=== PATIENT | female | born 1945 | race Caucasian/White ===

== ENCOUNTER 2018-03-19 12:20 | Emergency (ER) | payer OTHER ==
--- NOTE | 2018-03-19 13:20 | RAD REPORT ---
EXAM DESCRIPTION: RAD - Foot Right 3 View - 03/19/2018 1:12 pm CLINICAL HISTORY: Lateral foot pain COMPARISON: None. FINDINGS: Moderate metatarsus primus adductus with hallux valgus noted. Small calcaneal spurs are se en. No acute fracture or subluxation identified.
--- NOTE | 2018-03-19 13:40 | ER ---
Nurse's Notes [facility] Name: Yara Cartagena Age: 72 yrs Sex: Female : 1945 Arrival Date: 03/19/2018 Time: 12:24 Bed 20 Private MD: Diagnosis: Unspecified sprain of right foot Presentation: 03/19 12:42 Presenting complaint: Patient states: c/o right foot pain after hearing a "pop," denies em trauma or falling, painful when taking a step. Transition of care: patient was not received from another setting of care. Onset of symptoms was March 19, 2018. Risk Assessment: Do you want to hurt yourself or someone else? Patient reports no desire to harm self or others. Initial Sepsis Screen: Does the patient meet any 2 criteria? No. Patient's initial sepsis screen is negative. Does the patient have a suspected source of infection? No. Patient's initial sepsis screen is negative. Care prior to arrival: None. 12:42 Method Of Arrival: Wheelchair em 12:45 Acuity: BETH 4 iw Triage Assessment: 12:43 General: Appears in no apparent distress. comfortable, Behavior is calm, cooperative. em Pain: Complains of pain in right foot Pain currently is 0 out of 10 on a pain scale. at worst was 8 out of 10 on a pain scale. Musculoskeletal: Range of motion: intact in all extremities, Swelling absent. Injury Description: no injury. Historical: - Allergies: 12:46 Cipro; em - PMHx: 12:46 Pacemaker; Kidney stones; em - PSHx: 12:46 Hysterectomy; back surgery; em - Immunization history:: Adult Immunizations up to date. - Social history:: Smoking status: Patient/guardian denies using tobacco. Screenin:45 Abuse screen: Denies threats or abuse. Nutritional screening: No deficits noted. em Tuberculosis screening: No symptoms or risk factors identified. Fall Risk None identified. Assessment: 12:45 General: Appears in no apparent distress. comfortable, Behavior is calm, cooperative. em Pain: Complains of pain in right foot. Neuro: Level of Consciousness is awake, alert, obeys commands, Oriented to person, place, time, situation. Cardiovascular: Capillary refill Patient's skin is warm and dry. Cardiovascular: Denies chest pain. Respiratory: Airway is patent Respiratory effort is even, unlabored, Respiratory pattern is regular, symmetrical, Denies shortness of breath. GI: Abdomen is round non-distended. : No signs and/or symptoms were reported regarding the genitourinary system. EENT: No signs and/or symptoms were reported regarding the EENT system. Derm: Skin is intact, Skin is pink, warm \\T\\ dry. Musculoskeletal: Range of motion: intact in all extremities. 13:00 Reassessment: Patient appears in no apparent distress at this time. I agree with above iw assessment by Jann Gold LVN. 13:30 Reassessment: Patient appears in no apparent distress at this time. Patient and/or em family updated on plan of care and expected duration. Pain level reassessed. Patient is alert, oriented x 3, equal unlabored respirations, skin warm/dry/pink. Vital Signs: 12:44 BP 157 / 83; Pulse 61; Resp 18; Temp 98.6(O); Pulse Ox 97% on R/A; Weight 106.59 kg; em Height 5 ft. 6 in. (167.64 cm); Pain 0/10; 13:30 BP 111 / 60; Pulse 67; Resp 18; Pulse Ox 99% on R/A; em 12:44 Body Mass Index 37.93 (106.59 kg, 167.64 cm) em ED Course: 12:24 Patient arrived in ED. mr 12:34 Wojciech LeighNALDO [facility] kb 12:34 Tyler Schultz MD is Attending Physician. kb 12:41 Jann Gold LVN is Primary Nurse. em 12:45 Arm band placed on. em 12:45 No provider procedures requiring assistance completed. Patient did not have IV access em during this emergency room visit. 12:46 Patient has correct armband on for positive identification. Bed in low position. Call em light in reach. Adult w/ patient. 13:11 X-ray completed. Portable x-ray completed in exam room. Patient tolerated procedure ml well. 13:13 Foot Right 3 View XRAY In Process Unspecified. EDMS 13:17 Triage completed. iw Administered Medications: No medications were administered Outcome: 13:39 Discharge ordered by . kb 13:47 Discharged to home via wheelchair. em 13:47 Condition: good 13:47 Discharge instructions given to patient, family, Instructed on discharge instructions, follow up and referral plans. medication usage, Demonstrated understanding of instructions, follow-up care, medications, Prescriptions given X 1. 13:51 Patient left the ED. em Signatures: Dispatcher [employer] EDMS Leigh Jeffrey, BRAIN WAVE TECHNICIAN-C BRAIN WAVE TECHNICIAN-Ckb Haskins Tena Gold, Jann, TRAIN CONTROLLER TRAIN CONTROLLER em Tiffanie Lam, RADHA Flower, Yadira ml Corrections: (The following items were deleted from the chart) 12: General: Appears in no apparent distress. comfortable, Behavior is calm, em cooperative, em 12:25 Pain: Complains of pain in right foot em em 12:25 Neuro: Level of Consciousness is awake, alert, obeys commands, Oriented to em person, place, time, situation, em 12:25 Cardiovascular: Capillary refill Patient's skin is warm and dry. em em : 12:25 Respiratory: Airway is patent Respiratory effort is even, unlabored, Respiratory em pattern is regular, symmetrical, Denies shortness of breath em 12:25 Cardiovascular: Denies chest pain, em em 12:25 GI: Abdomen is round non-distended, em em 12:25 : No signs and/or symptoms were reported regarding the genitourinary system. em em 12:25 EENT: No signs and/or symptoms were reported regarding the EENT system. em em 12:25 Derm: Skin is intact, Skin is pink, warm \\T\\ dry. em em 12:25 Musculoskeletal: Range of motion: intact in all extremities, em em
--- NOTE | 2018-03-19 13:40 | EDPHYS ---
Physician Documentation [facility] Name: Yara Cartagena Age: 72 yrs Sex: Female : 1945 Arrival Date: 03/19/2018 Time: 12:24 Bed 20 Private MD: ED Physician Tyler Schultz HPI: 03/19 13:35 This 72 yrs old Female presents to ER via Wheelchair with complaints of Foot kb Injury. 13:35 The patient presents with pain, that is acute. The complaints affect the right foot. kb Context: The problem was sustained outdoors, resulted from an unknown cause, the patient can partially bear weight, must have assistance. Onset: The symptoms/episode began/occurred at 09:00. Modifying factors: The symptoms are alleviated by nothing, the symptoms are aggravated by weight bearing. Associated signs and symptoms: The patient has no apparent associated signs or symptoms. Severity of symptoms: At their worst the symptoms were mild, moderate, in the emergency department the symptoms are unchanged. The patient has not experienced similar symptoms in the past. The patient has not recently seen a physician. Pt states she was walking up a ramp and when she got to level ground at the top she felt a pop in the bottom of her right foot. States she was able to walk with assist since then. Historical: - Allergies: 12:46 Cipro; em - PMHx: 12:46 Pacemaker; Kidney stones; em - PSHx: 12:46 Hysterectomy; back surgery; em - Immunization history:: Adult Immunizations up to date. - Social history:: Smoking status: Patient/guardian denies using tobacco. ROS: 13:34 Constitutional: Negative for fever, chills, and weight loss, Cardiovascular: Negative kb for chest pain, palpitations, and edema, Respiratory: Negative for shortness of breath, cough, wheezing, and pleuritic chest pain, Abdomen/GI: Negative for abdominal pain, nausea, vomiting, diarrhea, and constipation, Skin: Negative for injury, rash, and discoloration, Neuro: Negative for headache, weakness, numbness, tingling, and seizure. 13:34 MS/extremity: Positive for pain, tenderness, of the right foot. Exam: 13:34 Constitutional: This is a well developed, well nourished patient who is awake, alert, kb and in no acute distress. Head/Face: Normocephalic, atraumatic. Chest/axilla: Normal chest wall appearance and motion. Nontender with no deformity. No lesions are appreciated. Cardiovascular: Regular rate and rhythm with a normal S1 and S2. No gallops, murmurs, or rubs. Normal PMI, no JVD. No pulse deficits. Respiratory: Lungs have equal breath sounds bilaterally, clear to auscultation and percussion. No rales, rhonchi or wheezes noted. No increased work of breathing, no retractions or nasal flaring. Abdomen/GI: Soft, non-tender, with normal bowel sounds. No distension or tympany. No guarding or rebound. No evidence of tenderness throughout. Skin: Warm, dry with normal turgor. Normal color with no rashes, no lesions, and no evidence of cellulitis. MS/ Extremity: Pulses equal, no cyanosis. Neurovascular intact. Full, normal range of motion. Neuro: Awake and alert, GCS 15, oriented to person, place, time, and situation. Cranial nerves II-XII grossly intact. Motor strength 5/5 in all extremities. Sensory grossly intact. Cerebellar exam normal. Normal gait. Vital Signs: 12:44 BP 157 / 83; Pulse 61; Resp 18; Temp 98.6(O); Pulse Ox 97% on R/A; Weight 106.59 kg; em Height 5 ft. 6 in. (167.64 cm); Pain 0/10; 13:30 BP 111 / 60; Pulse 67; Resp 18; Pulse Ox 99% on R/A; em 12:44 Body Mass Index 37.93 (106.59 kg, 167.64 cm) em MDM: 12:34 Patient medically screened. kb 13:34 Data reviewed: vital signs, nurses notes. Data interpreted: Pulse oximetry: on room air kb is 97 %. Interpretation: normal. Counseling: I had a detailed discussion with the patient and/or guardian regarding: the historical points, exam findings, and any diagnostic results supporting the discharge/admit diagnosis, radiology results, the need for outpatient follow up, a orthopedic surgeon, to return to the emergency department if symptoms worsen or persist or if there are any questions or concerns that arise at home. 13:38 ED course: Pt has walker to use at home. . kb 03/19 12:39 Order name: Foot Right 3 View XRAY; Complete Time: 13:23 kb Administered Medications: No medications were administered Disposition: 14:34 Co-signature as Attending Physician, Tyler Schultz MD. rn Disposition: 03/19/18 13:39 Discharged to Home. Impression: Unspecified sprain of right foot. - Condition is Stable. - Discharge Instructions: Foot Sprain. - Prescriptions for Tramadol 50 mg Oral Tablet - take 1 tablet by ORAL route every 8 hours as needed; 12 tablet. - Medication Reconciliation Form, Thank You Letter, Antibiotic Education, Prescription Opioid Use form. - Follow up: Emergency Department; When: As needed; Reason: Worsening of condition. Follow up: Private Physician; When: 2 - 3 days; Reason: Recheck today's complaints, Continuance of care, Re-evaluation by your physician. Signatures: Dispatcher [employer] EDLeigh Smith, MAXINE-C NETWORK ANALYST-Jann Burns, HOUSECLEANER FLOOR HOUSECLEANER FLOOR Tyler Verma MD MD die turner: (The following items were deleted from the chart) 13:51 13:39 03/19/2018 13:39 Discharged to Home. Impression: Unspecified sprain of right em foot. Condition is Stable. Forms are Medication Reconciliation Form, Thank You Letter, Antibiotic Education, Prescription Opioid Use. Follow up: Emergency Department; When: As needed; Reason: Worsening of condition. Follow up: Private Physician; When: 2 - 3 days; Reason: Recheck today's complaints, Continuance of care, Re-evaluation by your physician. kb
== END 2018-03-19 13:51 | disposition home or self-care (01) ==
LOC: ER 12:20
DX: S93.601A Unspecified sprain of right foot, initial encounter (principal); Y93.01 Activity, walking, marching and hiking; Y92.89 Other specified places as the place of occurrence of the external cause; Z88.1 Allergy status to other antibiotic agents; Z95.0 Presence of cardiac pacemaker
CPT/HCPCS: 99283

== ENCOUNTER 2021-07-07 08:58 | Emergency (ER) | payer OTHER ==
--- NOTE | 2021-07-07 10:39 | EDPHYS ---
Physician Documentation [facility] Name: Yara Cartagena Age: 75 yrs Sex: Female : 1945 Arrival Date: 07/07/2021 Time: 09:03 Bed 2 Private MD: ED Physician Alesia Murrell HPI: 07/07 09:12 This 75 yrs old Female presents to ER via EMS with complaints of Right sp3 shoulder pain. 09:12 75-year-old female with history of hypertension, pacemaker on Eliquis, and back surgery sp3 presents with a ground-level mechanical fall on outstretched hand with pain predominantly in the right shoulder and also in the right hand. Patient was brought in by EMS who stated that she had a limited range of motion on the right side along with anterior fullness. No other injuries including head, neck, back, chest, abdomen. Patient denies loss of consciousness, headache, neck pain, chest pain, syncope, back pain, nausea, vomiting, diarrhea, slurred speech, memory loss, motor weakness, sensory loss, any other ROS at this time. Patient states that she can move her hand and fingers but hurts on movement of her shoulder. Patient has had general anesthesia in the past without any complications.. Historical: - Allergies: 09:10 Cipro; ap3 - Home Meds: 09:10 Eliquis oral [Active]; amlodipine oral [Active]; levothyroxine oral [Active]; ap3 - PMHx: 09:10 Kidney stones; Pacemaker; ap3 - Immunization history:: Adult Immunizations up to date, Client reports receiving the 2nd dose of the Covid vaccine, Date received: January 26, 2021. - Social history:: Smoking status: Patient denies any tobacco usage or history of. ROS: 09:14 Constitutional: Negative for fever, chills, and weight loss, Eyes: Negative for injury, sp3 pain, redness, and discharge, ENT: Negative for injury, pain, and discharge, Neck: Negative for injury, pain, and swelling, Cardiovascular: Negative for chest pain, palpitations, and edema, Respiratory: Negative for shortness of breath, cough, wheezing, and pleuritic chest pain, Abdomen/GI: Negative for abdominal pain, nausea, vomiting, diarrhea, and constipation, Skin: Negative for injury, rash, and discoloration, Neuro: Negative for headache, weakness, numbness, tingling, and seizure. 09:14 All other systems are negative. Exam: 09:14 Constitutional: This is a well developed, well nourished patient who is awake, alert, sp3 and in no acute distress. Head/Face: Normocephalic, atraumatic. Eyes: Pupils equal round and reactive to light, extra-ocular motions intact. Lids and lashes normal. Conjunctiva and sclera are non-icteric and not injected. Cornea within normal limits. Periorbital areas with no swelling, redness, or edema. ENT: Nares patent. No nasal discharge, no septal abnormalities noted. External auditory canals are clear. Oropharynx with no redness, swelling, or masses, exudates, or evidence of obstruction, uvula midline. Mucous membranes moist. Neck: Trachea midline, no thyromegaly or masses palpated, and no cervical lymphadenopathy. Supple, full range of motion without nuchal rigidity, or vertebral point tenderness. No Meningismus. Chest/axilla: Normal chest wall appearance and motion. Nontender with no deformity. No lesions are appreciated. Cardiovascular: Regular rate and rhythm with a normal S1 and S2. No gallops, murmurs, or rubs. Normal PMI, no JVD. No pulse deficits. Respiratory: Lungs have equal breath sounds bilaterally, clear to auscultation and percussion. No rales, rhonchi or wheezes noted. No increased work of breathing, no retractions or nasal flaring. Skin: Warm, dry with normal turgor. Normal color with no rashes, no lesions, and no evidence of cellulitis. Neuro: Awake and alert, GCS 15, oriented to person, place, time, and situation. Cranial nerves II-XII grossly intact. Motor strength 5/5 in all extremities. Sensory grossly intact. Cerebellar exam normal. Normal gait. Psych: Awake, alert, with orientation to person, place and time. Behavior, mood, and affect are within normal limits. 09:14 Musculoskeletal/extremity: Exam is negative for abrasion, edema, erythema, laceration, Patient has anterior fullness and limited abduction on the right side. No lateral step-off is noted. Distal neuro exam, capillary refill and vascular exam are normal.. Vital Signs: 09:08 Pulse 59; Resp 18; Temp 97.7(O); Pulse Ox 100% ; Weight 88.9 kg; Height 5 ft. 6 in. ap3 (167.64 cm); Pain 9; 09:08 Body Mass Index 31.63 (88.90 kg, 167.64 cm) ap3 MDM: 09:04 Patient medically screened. sp3 09:15 Data reviewed: vital signs, nurses notes, EMS record. ED course: 75-year-old female sp3 with likely right shoulder subluxation or dislocation. There is anterior fullness and limited abduction and range of motion. No lateral step-off is noted therefore I will obtain x-rays first of the right shoulder, right hand, and chest. CT scan of the head and neck is not indicated as there is no loss of consciousness, no midline tenderness of the neck, and full range of motion without difficulty. Will obtain further laboratory values and EKG if sedation is necessary.. 10:37 ED course: Proximal humeral neck fracture noted with anterior dislocation. Shoulder sp3 surface not dislocated. Chest x-ray and hand x-ray demonstrate no fracture, pneumothorax, or other significant abnormality. Will put patient in a sling and have her follow-up with orthopedics. No other intervention is indicated at this time.. 07/07 09:10 Order name: XRAY Shoulder RIGHT 2 view sp3 07/07 09:10 Order name: XRAY Hand RIGHT 3 View sp3 07/07 09:10 Order name: XRAY Chest (1 view) sp3 07/07 09:10 Order name: NPO; Complete Time: 09:15 sp3 Administered Medications: No medications were administered Disposition Summary: 07/07/21 10:39 Discharge Ordered Location: Home sp3 Condition: Stable sp3 Diagnosis - 2-part displaced fracture of surgical neck of right humerus, initial encounter for sp3 closed fracture Followup: sp3 - With: Chico Smith MD - When: Upon discharge from the Emergency Department - Reason: Followup: sp3 - With: Dre Carpenter MD - When: Upon discharge from the Emergency Department - Reason: Discharge Instructions: - Discharge Summary Sheet sp3 - Humerus Fracture Treated With Immobilization sp3 - How to Use a Sling sp3 Forms: - Medication Reconciliation Form sp3 - Thank You Letter sp3 - Antibiotic Education sp3 - Prescription Opioid Use sp3 Signatures: Dispatcher [employer] Kenya Inman, RADHA RN ap3 Alesia Murrell MD MD sp3
--- NOTE | 2021-07-07 10:39 | ER ---
Nurse's Notes [facility] Name: Yara Cartagena Age: 75 yrs Sex: Female : 1945 Arrival Date: 07/07/2021 Time: 09:03 Bed 2 Private MD: Diagnosis: 2-part displaced fracture of surgical neck of right humerus, initial encounter for closed fracture Presentation: 07/07 09:08 Chief complaint: Patient states: she fell and hurt her right shoulder and left ankle. ap3 Coronavirus screen: At this time, the client does not indicate any symptoms associated with coronavirus-19. Ebola Screen: No symptoms or risks identified at this time. Initial Sepsis Screen: Does the patient meet any 2 criteria? No. Patient's initial sepsis screen is negative. Does the patient have a suspected source of infection? No. Patient's initial sepsis screen is negative. Risk Assessment: Do you want to hurt yourself or someone else? Patient reports no desire to harm self or others. Onset of symptoms was July 07, 2021. Care prior to arrival: Medication(s) given: Tylenol, IV Tylenol IV initiated. 20 GA, in the left antecubital area. 09:08 Method Of Arrival: EMS: [facility] ap3 09:08 Acuity: BETH 3 ap3 Triage Assessment: 09:13 General: Appears in no apparent distress. uncomfortable, Behavior is calm, cooperative, ap3 appropriate for age. Pain: Complains of pain in right shoulder, right wrist, left ankle Pain currently is 9 out of 10 on a pain scale. EENT: No signs and/or symptoms were reported regarding the EENT system. Neuro: Level of Consciousness is awake, alert, obeys commands, Oriented to person, place, time, situation, Appropriate for age Moves all extremities. Gait is unsteady, Speech is normal. Cardiovascular: Denies chest pain, shortness of breath. Respiratory: Airway is patent Respiratory effort is even, unlabored, Respiratory pattern is regular, symmetrical. GI: No signs and/or symptoms were reported involving the gastrointestinal system. : No signs and/or symptoms were reported regarding the genitourinary system. Derm: No signs and/or symptoms reported regarding the dermatologic system. Musculoskeletal: Reports pain in right shoulder, right wrist, left ankle since this mornings fall. Historical: - Allergies: 09:10 Cipro; ap3 - Home Meds: 09:10 Eliquis oral [Active]; amlodipine oral [Active]; levothyroxine oral [Active]; ap3 - PMHx: 09:10 Kidney stones; Pacemaker; ap3 - Immunization history:: Adult Immunizations up to date, Client reports receiving the 2nd dose of the Covid vaccine, Date received: January 26, 2021. - Social history:: Smoking status: Patient denies any tobacco usage or history of. Screenin:12 Abuse screen: Denies threats or abuse. Nutritional screening: No deficits noted. ap3 Tuberculosis screening: No symptoms or risk factors identified. Fall Risk Fall in past 12 months (25 points). No secondary diagnosis (0 pts). IV access (20 points). Ambulatory Aid- None/Bed Rest/Nurse Assist (0 pts). Gait- Weak (10 pts.). Mental Status- Oriented to own ability (0 pts). Total Palm Fall Scale indicates Low Risk Score (25-44 pts). Fall prevention measures have been instituted. Side Rails Up X 2 Frequent Obs/Assesments occuring Family Present and informed to notify staff if they need to leave bedside As available Patient and Family Educated on Fall Prevention Program and strategies. Assessment: 10:24 Reassessment: Patient and/or family updated on plan of care and expected duration. Pain ap3 level reassessed. Patient is alert, oriented x 3, equal unlabored respirations, skin warm/dry/pink. Vital Signs: 09:08 Pulse 59; Resp 18; Temp 97.7(O); Pulse Ox 100% ; Weight 88.9 kg; Height 5 ft. 6 in. ap3 (167.64 cm); Pain 9/10; 09:08 Body Mass Index 31.63 (88.90 kg, 167.64 cm) ap3 ED Course: 09:03 Patient arrived in ED. ap3 09:04 Alesia Murrell MD is Attending Physician. sp3 09:08 Kenya Chaudhry, RADHA is Primary Nurse. ap3 09:10 Triage completed. ap3 09:15 Patient has correct armband on for positive identification. Bed in low position. Call ap3 light in reach. Side rails up X2. Adult w/ patient. monitor car operator on. Pulse ox on. NIBP on. Door closed. Noise minimized. 09:15 Arm band placed on left wrist. ap3 10:39 XRAY Shoulder RIGHT 2 view In Process Unspecified. EDMS 10:39 XRAY Hand RIGHT 3 View In Process Unspecified. EDMS 10:39 XRAY Chest (1 view) In Process Unspecified. EDMS 10:39 Chico Smith MD is Referral Physician. sp3 10:42 Referral Physician role handed off by Chico Smith MD sp3 10:43 Dre Carpenter MD is Referral Physician. sp3 Administered Medications: No medications were administered Outcome: 10:39 Discharge ordered by . sp3 11:27 Patient left the ED. ap3 Signatures: Dispatcher [employer] EDKenya Maldonado RN RN ap3 Alesia Murrell MD MD sp3
--- OUTSIDE RECORDS SUMMARY | 2021-07-07 10:44 | XMS REPORT | Continuity of Care Document ---
:1945 Author Organization [facility] t Address [address] [place] [address] Care Team Providers Name Role Phone AARON Primary Care Physician Unavailable AARON Attending Clinician Unavailable AARON Admitting Clinician Unavailable Problems This patient has no known problems. Allergies, Adverse Reactions, Alerts This patient has no known allergies or adverse reactions. Medications This patient has no known medications. Procedures This patient has no known procedures. Encounters Start End Encounter Admission Attending Care Care Encounter Source Date/Time Date/Time Type Type Clinicians Facility Department ID 2018-01-23 2018-01-23 Outpatient C [facility] [id number] [facility] 19:14:00 19:14:00 [facility] Results Test Description Test Time Test Comments Results Result Comments Source CBC with Differential 2018-01-23 20:33:00 Test Item Value Reference Range Interpretation Comme nts WBC (test code = WBC) 5.9 K/cumm 4.4-10.5 N RBC (test code = RBC) 4.74 M/cumm 3.75-5.20 N Hemoglobin (test code = HGB) 12.9 gm/dL 12.2-14.8 N Hematocrit (test code = HCT) 43.5 % 36.5-44.4 N MCV (test code = MCV) 91.8 fL 80-100 N MCH (test code = MCH) 27.1 pg 27.0-32.5 N MCHC (test code = MCHC) 29.5 g/dL 32.0-37.5 L RDW (test code = RDW) 13.6 % 11.5-14.5 N Platelet Count (test code = PLTCT) 292 K/cumm 140-440 N MPV (test code = MPV) 11.4 fL Diff Method (test code = DIFFM) Auto Neutrophil (test code = NEUT) 51.8 % 36-70 N Lymphocyte (test code = LYMPH) 36.6 % 12-44 N Monocyte (test code = MONO) 7.3 % 0-11 N Eosinophil (test code = EOS) 3.5 % 0-7 N Basophil (test code = BASO) 0.7 % 0-2 N Neutro Abs (test code = ANEUT) 3.0 K/cumm 1.6-7.4 N Lymph Abs (test code = ALYMPH) 2.1 K/cumm 0.5-4.6 N Moody Abs (test code = AMONO) 0.4 K/cumm 0.0-1.2 N Eos Abs (test code = AEOS) 0.21 K/cumm 0.00-0.74 N Baso Abs (test code = ABASO) 0.0 K/cumm 0.00-0.21 N Hypochromic (test code = HYPO) Slight Lipid [id number] 20:20:00 Test Item Value Reference Range Interpretation Comments Cholesterol (test 207 mg/dL 0-200 H code = CHOL) Triglycerides (test 146 mg/dL 9-200 N code = TRIG) HDL (test code = 68 mg/dL 50-60 H HDL) Chol/HDL (test code 3.0 Ratio 0.0-4.4 N = CHOLPHDL) LDL, Calculated 110 mg/dL 0-130 N (NOTE)RISK O F HEART (test code = LDLC) DISEASEPu blished by [place] Heart AssociationAnal yte Optim al Boderline Increased RiskC HOL <200 200-239 >240TRI G <150 150-199 >200HDL Male: >60 <40HDL Female: >60 <50 LDL < 100 130-15 9 >160 LDL NEAR OPTIMAL IS 100- 129 VLDL (test code = 29 mg/dL 5-40 N VLDL) LDL/HDL (test code = 2 LDLPHDL) Comprehensive Metabolic [id number] 20:20:00 Test Item Value Reference Range Interpretation Comments Sodium (test code = 143 mmol/L 135-145 N NA) Potassium (test 5.1 mmol/L 3.5-5.1 N code = K) Chloride (test code 104 mmol/L 98-105 N = CL) Carbon Dioxide 26 mmol/L 22-29 N (test code = CO2) Glucose (test code 104 mg/dL 70-115 N = GLU) Blood Urea Nitrogen 26 mg/dL 8-23 H (test code = BUN) Creatinine (test 1.3 mg/dL 0.5-0.9 H code = CREAT) Calcium (test code 9.8 mg/dL 8.3-10.5 N = CA) Prot Total (test 6.7 g/dL 6.4-8.3 N code = TP) Albumin (test code 4.5 g/dL 3.5-5.2 N = ALB) A/G Ratio (test 2.0 Ratio code = AGRATIO) Globulin (test code 2.2 2.9-3.1 L = GLOB) Bili Total (test 0.4 mg/dL 0.1-0.9 N code = TBIL) Alk Phos (test code 62 U/L 35-104 N = APHOS) AST (test code = 16 U/L 1-32 N AST) ALT (test code = 13 U/L 1-33 N ALT) BUN/Creatinine 20.0 Ratio (test code = BCRATIO) Anion Gap (test 13 mmol/L 7-16 N code = AGAP) Estimated GFR (test 43 eGFR (es timated code = GFR) mL/min/1.73m2 Glomerular Anand tration Rate) is an est imated value,calculate d from the patient's s nena creatinine usin g the MDRD equation.I t is NOT the patient 's actual GFR. The eGFR provides a more clinicallyusefu l measure of kidn ey disease than se rum creatinine alone.This calculation andre es sex and race into account, if the informationis provided. If th e race is not provided , and the patient isAfrican-Ameri can, multiply by 1.2 12. If sex is not prov ided, and thepatient is female, multipl y by 0.742. Results for patients <18 ye ars ofage have not been validated by th e MDRD study and shoul d be interpretedwith caution.eGFR Re sult Interpretation: eGFR > or = 60 is in t he Normal RangeeGF R < 60 may mean kidney diseaseeGFR < 1 5 may mean kidney failureRange s recommended by the National Kidney Foundation,http ://nkd ep.nih.gov Glycosylated [id number] 00:57:00 Test Item Value Reference Range Interpretation Comments HBA1c (test code = HBA1C) 5.6 % 4.8-5.9 N CBC with [id number] 23:33:00 Test Item Value Reference Range Interpretation Comments WBC (test code = WBC) 12.4 K/cumm 4.4-10.5 H RBC (test code = RBC) 4.78 M/cumm 3.75-5.20 N Hemoglobin (test code = HGB) 13.1 gm/dL 12.2-14.8 N Hematocrit (test code = HCT) 44.1 % 36.5-44.4 N MCV (test code = MCV) 92.3 fL 80-100 N MCH (test code = MCH) 27.5 pg 27.0-32.5 N MCHC (test code = MCHC) 29.8 g/dL 32.0-37.5 L RDW (test code = RDW) 14.1 % 11.5-14.5 N Platelet Count (test code = 274 K/cumm 140-440 N PLTCT) MPV (test code = MPV) 9.8 fL Diff Method (test code = DIFFM) Auto Neutrophil (test code = NEUT) 83.3 % 36-70 H Lymphocyte (test code = LYMPH) 10.9 % 12-44 L Monocyte (test code = MONO) 4.9 % 0-11 N Eosinophil (test code = EOS) 0.7 % 0-7 N Basophil (test code = BASO) 0.3 % 0-2 N Neutro Abs (test code = ANEUT) 10.3 K/cumm 1.6-7.4 H Lymph Abs (test code = ALYMPH) 1.4 K/cumm 0.5-4.6 N Moody Abs (test code = AMONO) 0.6 K/cumm 0.0-1.2 N Eos Abs (test code = AEOS) 0.08 K/cumm 0.00-0.74 N Baso Abs (test code = ABASO) 0.0 K/cumm 0.00-0.21 N Hypochromic (test code = HYPO) Slight Lipid [id number] 23:22:00 Test Item Value Reference Range Interpretation Comments Cholesterol (test 240 mg/dL 0-200 H code = CHOL) Triglycerides (test 148 mg/dL 9-200 N code = TRIG) HDL (test code = 73 mg/dL 50-60 H HDL) Chol/HDL (test code 3.3 Ratio 0.0-4.4 N = CHOLPHDL) LDL, Calculated 137 0-130 H (NOTE)RISK O F HEART (test code = LDLC) DISEASEPu blished by [place] Heart AssociationAnal yte Optim al Boderline Increased RiskC HOL <200 200-239 >240TRI G <150 150-199 >200HDL Male: >60 <40HDL Female: >60 <50 LDL < 100 130-15 9 >160 LDL NEAR OPTIMAL IS 100- 129 VLDL (test code = 30 mg/dL 5-40 N VLDL) LDL/HDL (test code = 2 LDLPHDL) Comprehensive Metabolic [id number] 23:22:00 Test Item Value Reference Range Interpretation Comments Sodium (test code = 138 mmol/L 135-145 N NA) Potassium (test 4.8 mmol/L 3.5-5.1 N code = K) Chloride (test code 101 mmol/L 98-105 N = CL) Carbon Dioxide 25 mmol/L 22-29 N (test code = CO2) Glucose (test code 115 mg/dL 70-115 N = GLU) Blood Urea Nitrogen 25 mg/dL 8-23 H (test code = BUN) Creatinine (test 1.4 mg/dL 0.5-0.9 H code = CREAT) Calcium (test code 9.8 mg/dL 8.3-10.5 N = CA) Prot Total (test 6.7 g/dL 6.4-8.3 N code = TP) Albumin (test code 4.4 g/dL 3.5-5.2 N = ALB) A/G Ratio (test 1.9 Ratio code = AGRATIO) Globulin (test code 2.3 2.9-3.1 L = GLOB) Bili Total (test 0.4 mg/dL 0.1-0.9 N code = TBIL) Alk Phos (test code 59 U/L 35-104 N = APHOS) AST (test code = 18 U/L 1-32 N AST) ALT (test code = 13 U/L 1-33 N ALT) BUN/Creatinine 17.9 Ratio (test code = BCRATIO) Anion Gap (test 12 mmol/L 7-16 N code = AGAP) Estimated GFR (test 40 eGFR (es timated code = GFR) mL/min/1.73m2 Glomerular Anand tration Rate) is an est imated value,calculate d from the patient's s nena creatinine usin g the MDRD equation.I t is NOT the patient 's actual GFR. The eGFR provides a more clinicallyusefu l measure of kidn ey disease than se rum creatinine alone.This calculation andre es sex and race into account, if the informationis provided. If th e race is not provided , and the patient isAfrican-Ameri can, multiply by 1.2 12. If sex is not prov ided, and thepatient is female, multipl y by 0.742. Results for patients <18 ye ars ofage have not been validated by th e MDRD study and shoul d be interpretedwith caution.eGFR Re sult Interpretation: eGFR > or = 60 is in t he Normal RangeeGF R < 60 may mean kidney diseaseeGFR < 1 5 may mean kidney failureRange s recommended by the National Kidney Foundation,http ://nkd ep.nih.gov
--- NOTE | 2021-07-07 10:47 | RAD REPORT ---
EXAM DESCRIPTION: [place] Single View07/07/2021 10:39 am CLINICAL HISTORY: Chest pain COMPARISON: 2018 FINDINGS: The lungs appear clear of acute infiltrate. The heart is mildly enlarged. Pacemaker leads are in place. IMPRESSION: No acute abnormalities displayed
--- NOTE | 2021-07-07 10:48 | RAD REPORT ---
EXAM DESCRIPTION: RAD - Shoulder Right 2 View - 07/07/2021 10:39 am CLINICAL HISTORY: Right shoulder pain FINDINGS: Comminuted fracture involves the right humeral head and neck with impaction of fracture fr agments. Moderate displacement of fracture fragments is seen. No dislocation noted
--- NOTE | 2021-07-07 11:05 | RAD REPORT ---
EXAM DESCRIPTION: RAD - Hand Right 3 View - 07/07/2021 10:39 am CLINICAL HISTORY: Right hand pain status post injury FINDINGS: No fracture or dislocation is seen. Osteoporosis. Osteoarthritis first MCP joint
[2021-07-07 11:31] VITALS: TEMP 97.7; O2SAT 100
== END 2021-07-07 11:27 | disposition home or self-care (01) ==
LOC: ER 08:58
DX: S42.221A 2-part displaced fracture of surgical neck of right humerus, initial encounter for closed fracture (principal); W01.0XXA Fall on same level from slipping, tripping and stumbling without subsequent striking against object, initial encounter; Y93.9 Activity, unspecified; Y92.9 Unspecified place or not applicable
CPT/HCPCS: 71045; 99284